=== PATIENT | female | born 1970 | race Asian ===

== ENCOUNTER 2018-10-30 21:11 | Emergency (ER) | payer OTHER ==
[~2018-10-30] VITALS: Ht 154.9 cm; Wt 68.0 kg
[2018-10-30 21:17] VITALS: BP_SYST 136
[2018-10-30] MEDS ORDERED: IBUPROFEN 600 MG TABLET PO ONE (21:30)
[2018-10-30 22:21] VITALS: BP_SYST 136
== END 2018-10-30 22:22 | disposition home or self-care (01) ==
LOC: SED 21:11
DX: S86.911A Strain of unspecified muscle(s) and tendon(s) at lower leg level, right leg, initial encounter (principal); X58.XXXA Exposure to other specified factors, initial encounter; Y93.89 Activity, other specified; Y92.89 Other specified places as the place of occurrence of the external cause; Y99.8 Other external cause status
CPT/HCPCS: 73564; 99283